=== PATIENT | male | born 1995 | race Hispanic/Latino ===

== ENCOUNTER 2017-02-24 23:09 | Emergency (ER) | payer OTHER ==
[2017-02-25 00:44] LABS: #Basophils 0.1 thou/uL (0.0-0.2); #Eosinphils 0.1 thou/uL (0.0-0.7); #Lymphocytes 3.5 thou/uL (1.20-3.40); #Monocytes 0.4 thou/uL (0.11-0.59); #Neutrophils 4.3 thou/uL (1.40-6.50); %Eosinophils 1.1 % (0.0-10.0); %Lymphocytes 42.1 % (28.0-48.0); %Neutrophils 50.9 % (31.0-61.0); Hemoglobin 14.6 g/dL (14.0-18.0); Mean Corpuscular HGB CONC 35.3 g/dL (32.0-36.0); Mean Corpuscular Hemoglobin 30.6 pg (25.0-35.0); Mean Corpuscular Volume 86.7 fl (77.0-87.0); Mean Platelet Volume 9.2 fL (7.4-10.4); Platelet Count 202 thou/uL (130-400); RBC Distribution Width 11.6 % (11.5-14.5); Red Blood Cell (RBC) Count 4.77 mill/uL (4.00-5.20); White Blood Cell (WBC) Count 8.4 thou/uL (4.8-10.8)
[2017-02-25] MEDS ORDERED: Lorazepam 2 MG/ML VIAL ONE (00:53)
[2017-02-25 01:01] LABS: ALT (SGPT) 19 U/L (0-55); AST (SGOT) 15 U/L (10-45); Alkaline Phosphatase 96 U/L (Less than 750); Anion Gap 16 mmol/L (10-20); BUN (Urea Nitrogen) 15 mg/dL (8.4-21.0); Bilirubin, Total 0.3 mg/dL (0.2-1.2); Calc. Creatinine Clearance 0 mL/min (70-130); Calcium 8.7 mg/dL (7.8-10.44); Carbon Dioxide 23 mmol/L (22-29); Chloride 109 mmol/L (98-107); Estimated GFR-MDRD Greater than 90; Globulin 2.9 g/dL (2.4-3.5); Glucose 108 mg/dL (70-105); Potassium 3.5 mmol/L (3.5-5.1); Protein, Total 6.9 g/dL (6.0-8.3); Sodium 144 mmol/L (136-145)
[2017-02-25 01:18] LABS: Carbamazepine-Tegretol 18.4 ug/mL (4.0-12.0)
--- NOTE | 2017-02-25 12:49 | CT ---
PRELIMINARY REPORT/[facility]/EMERGENCY AFTER-HOURS PROCEDURE: EXAM: CT Head Without Intravenous Contrast CLINICAL HISTORY: 21 years old, male; Signs and symptoms and condition or disease; Brain tumor and other: Seizure; Neoplasm of brain, not specified; Altered mental status/memory loss and speech disturbance; Slurred speech; Prior surgery; Surgery date: 6+ months; Surgery type: Tumor removed; Patient HX: Patient with seizure disorder since a baby. Last seizure in march of 2016. Recently switched to keppra to try for more consistent seizure control, but caused suicidal thoughts. Seen at another er yesterday, spoke with epilepsy center and told to stop keppra and resume tegretol and topamax. Was sleepy after lunch today. Hadn't had evening dose of tegretol due to sleeping, then developed a generalized seizure. Lasted 5 min and then resolved spontaneously before ambulance got there. A\T\o when ambulance arrived. Same in hospital. No si today. ; Additional info: Seizure today lasting 5 minutes , AMS with slurred speech since seizure TECHNIQUE: Axial computed tomography images of the head/brain without intravenous contrast. This CT exam was performed using one or more of the following dose reduction techniques: automated exposure control, adjustment of the mA and/or kV according to patient size, and/or use of iterative reconstruction technique. EXAM DATE/TIME: Exam ordered 02/25/2017 1:29 AM COMPARISON: No relevant prior studies available. FINDINGS: Brain: Encephalomalacia in the right frontal lobe. No hemorrhage. Ventricles: Unremarkable. No ventriculomegaly. Bones/joints: Remote postsurgical change of the right frontal skull. No acute fracture. Soft tissues: Unremarkable. Sinuses: Unremarkable as visualized. No acute sinusitis. Mastoid air cells: Unremarkable as visualized. No mastoid effusion. IMPRESSION: 1. Encephalomalacia in the right frontal lobe. 2. No acute brain findings. Thank you for allowing us to participate in the care of your patient. Dictated and Authenticated by: Jamal Ferrell MD 02/25/2017 1:44 AM Central Time ([place] \T\ [place]) FINAL REPORT EMERGENT AFTER HOURS CT BRAIN: IMPRESSION: Agree with the preliminary interpretation given by [facility]. No evidence for intracranial hemorrhage or mass effect. POS: [facility]
== END 2017-02-25 02:26 | disposition home or self-care (01) ==
LOC: NAV ERS 23:09
DX: R56.9 Unspecified convulsions (principal); F41.9 Anxiety disorder, unspecified; F32.9 Major depressive disorder, single episode, unspecified; F90.9 Attention-deficit hyperactivity disorder, unspecified type; Z79.899 Other long term (current) drug therapy
CPT/HCPCS: 36415; 70450; 80053; 80156; 85025; J2060

== ENCOUNTER 2019-08-20 14:37 | Emergency (ER) | payer OTHER, SELFPAY | END 2019-08-20 15:15 | disposition home or self-care (01) | LOC: NAV ERS 14:37 | DX: M25.561 Pain in right knee (principal); G89.29 Other chronic pain; F90.9 Attention-deficit hyperactivity disorder, unspecified type; F41.9 Anxiety disorder, unspecified; F32.9 Major depressive disorder, single episode, unspecified; R56.9 Unspecified convulsions; Z79.51 Long term (current) use of inhaled steroids; Z79.899 Other long term (current) drug therapy; Z85.05 Personal history of malignant neoplasm of liver | CPT/HCPCS: 99281 ==

== ENCOUNTER 2021-11-09 12:08 | Emergency (ER) | payer SELFPAY ==
[2021-11-10 13:39] LABS: SARS-CoV-2 PCR by NAA Not Detected (NotDetected)
== END 2021-11-09 13:08 | disposition home or self-care (01) ==
LOC: NAV ERS 12:08
DX: J06.9 Acute upper respiratory infection, unspecified (principal); Z20.822 Contact with and (suspected) exposure to COVID-19
CPT/HCPCS: 99283; U0003; U0005

== ENCOUNTER 2022-08-05 02:40 | Emergency (ER) | payer SELFPAY ==
[2022-08-05] MEDS ORDERED: traMADol HCl 50 MG TAB ONE (03:37)
== END 2022-08-05 03:40 | disposition home or self-care (01) ==
LOC: NAV ERS 02:40
DX: S62.613A Displaced fracture of proximal phalanx of left middle finger, initial encounter for closed fracture (principal); W22.01XA Walked into wall, initial encounter
CPT/HCPCS: 29125

== ENCOUNTER 2022-08-21 22:52 | Emergency (ER) | payer SELFPAY ==
[2022-08-21 23:18] LABS: Bilirubin Negative (Negative); Blood, Urine Large (Negative); Clarity Clear (Clear); Glucose, Urine (Dipstick) Negative (Negative); Ketone, Urine Negative (Negative); Leukocyte Negative (Negative); Nitrite Negative (Negative); Protein, Urine (Dipstick) Trace mg/dL (Neg-Trace); pH, Urine 5.5 (5.0-9.0)
[2022-08-21 23:22] LABS: Bacteria/HPF None Seen HPF (None Seen); RBC/HPF Greater than 50 HPF (0-3); Squamous Epithelial 0-3 HPF (0-3); WBC/HPF None Seen HPF (0-3)
[2022-08-21] MEDS ORDERED: Sodium Chloride 0.9% 1,000 ML ONE (23:24)
[2022-08-21] MEDS ORDERED: Ketorolac Tromethamine 30 MG/ML VIAL ONE (23:24)
[2022-08-21 23:43] LABS: #Basophils 0.1 thou/uL (0.0-0.2); #Lymphocytes 3.4 thou/uL (1.20-3.40); #Monocytes 0.9 thou/uL (0.11-0.59); %Basophils 0.7 % (0.0-1.0); %Eosinophils 0.3 % (0.0-10.0); %Lymphocytes 25.6 % (21.0-51.0); %Monocytes 6.5 % (0.0-10.0); %Neutrophils 66.9 % (42.0-75.0); Hemoglobin 15.8 g/dL (14.0-18.0); Mean Corpuscular HGB CONC 34.2 g/dL (32.0-36.0); Mean Corpuscular Hemoglobin 30.7 pg (27.0-31.0); Mean Corpuscular Volume 89.6 fl (78.0-98.0); Mean Platelet Volume 9.5 fL (7.4-10.4); Platelet Count 304 thou/uL (130-400); RBC Distribution Width 11.6 % (11.5-14.5); Red Blood Cell (RBC) Count 5.14 mill/uL (4.70-6.10); White Blood Cell (WBC) Count 13.4 thou/uL (4.8-10.8)
[2022-08-21 23:55] LABS: Anion Gap 16 mmol/L (10-20); BUN (Urea Nitrogen) 19 mg/dL (8.9-20.6); Calc. Creatinine Clearance 0 mL/min (70-130); Calcium 9.7 mg/dL (7.8-10.44); Carbon Dioxide 26 mmol/L (22-29); Chloride 102 mmol/L (98-107); Estimated GFR 115; Glucose 112 mg/dL (70-105); Potassium 3.7 mmol/L (3.5-5.1); Sodium 140 mmol/L (136-145)
== END 2022-08-22 00:58 | disposition home or self-care (01) ==
LOC: NAV ERS 22:52
DX: N13.2 Hydronephrosis with renal and ureteral calculous obstruction (principal); Z87.891 Personal history of nicotine dependence
CPT/HCPCS: 74176; 80048; 81003; 81015; 85025; 96374; J1885; J7050

== ENCOUNTER 2024-04-10 22:03 | Emergency (ER) | payer SELFPAY | END 2024-04-10 22:35 | disposition home or self-care (01) | LOC: NAV ERS 22:03 | DX: R11.2 Nausea with vomiting, unspecified (principal); Z87.891 Personal history of nicotine dependence | CPT/HCPCS: 99283 ==